=== PATIENT | male | born 1960 | race Caucasian/White ===

== ENCOUNTER 2018-09-02 09:38 | Outpatient (REF) | payer MEDICAID, SELFPAY ==
[2018-09-03 09:51] LABS: HIV-1/2 Ag & Ab Screen Negative (NEGAT)
== END 2018-09-02 09:58 ==
LOC: NCHCN 09:38
PROVIDERS: PCP Family Medicine; Visit Provider Family Medicine
DX: I10 Essential (primary) hypertension (principal); I48.0 Paroxysmal atrial fibrillation; N07.9 Hereditary nephropathy, not elsewhere classified with unspecified morphologic lesions; Z20.6 Contact with and (suspected) exposure to human immunodeficiency virus [HIV]; Z11.4 Encounter for screening for human immunodeficiency virus [HIV]
CPT/HCPCS: 87389; 86701

== ENCOUNTER 2018-12-01 08:45 | Outpatient (REF) | payer MEDICAID, SELFPAY ==
[2018-12-02 10:28] LABS: HIV-1/2 Ag & Ab Screen Negative (NEGAT)
== END 2018-12-01 09:05 ==
LOC: NCHCN 08:45
PROVIDERS: PCP Family Medicine; Visit Provider Family Medicine
DX: B07.9 Viral wart, unspecified; Z20.6 Contact with and (suspected) exposure to human immunodeficiency virus [HIV]; Z11.4 Encounter for screening for human immunodeficiency virus [HIV]; I10 Essential (primary) hypertension
CPT/HCPCS: 87389

== ENCOUNTER 2019-03-02 10:54 | Outpatient (REF) | payer MEDICAID, SELFPAY ==
[2019-03-02 13:22] LABS: ALT 40 U/L (12-78); AST 20 U/L (15-37); Alkaline Phosphatase 130 U/L (46-116); BUN 15 mg/dL (7-18); Bilirubin, Total 0.5 mg/dL (0.2-1.0); CREATININE 1.08 mg/dL (0.70-1.30); Calcium 9.4 mg/dL (8.5-10.1); Chloride 99 mmol/L (98-107); Glucose 93 mg/dL (70-100); Potassium 4.4 mmol/L (3.5-5.1); Sodium 137 mmol/L (136-145); Total Protein 7.4 g/dL (6.4-8.2)
[2019-03-03 10:09] LABS: Syphilis Serology (RPR) Negative (Negative)
[2019-03-03 10:53] LABS: HIV-1/2 Ag & Ab Screen Negative (NEGAT)
[2019-03-03 10:54] LABS: Hepatitis B Surface Ag Negative (NEGAT)
[2019-03-03 13:11] LABS: Chlamydia Result Negative; GC Result Negative; Specimen Description URINE
== END 2019-03-02 11:14 ==
LOC: NCHCN 10:54
PROVIDERS: PCP Family Medicine; Visit Provider Family Medicine
DX: Z11.3 Encounter for screening for infections with a predominantly sexual mode of transmission (principal); Z11.4 Encounter for screening for human immunodeficiency virus [HIV]; Z12.5 Encounter for screening for malignant neoplasm of prostate; Z11.59 Encounter for screening for other viral diseases; Z20.6 Contact with and (suspected) exposure to human immunodeficiency virus [HIV]; Z00.00 Encounter for general adult medical examination without abnormal findings
CPT/HCPCS: 80053; 87340; 87389; 87491; 87591; 84154; 86592

== ENCOUNTER 2019-05-31 09:40 | Outpatient (REF) | payer MEDICAID, SELFPAY ==
[2019-06-01 10:31] LABS: HIV-1/2 Ag & Ab Screen Negative (NEGAT)
[2019-06-01 14:28] LABS: Chlamydia Result Negative; GC Result Negative; Specimen Description URINE
== END 2019-05-31 10:00 ==
LOC: NCHCN 09:40
PROVIDERS: PCP Family Medicine; Visit Provider Family Medicine
DX: Z20.6 Contact with and (suspected) exposure to human immunodeficiency virus [HIV] (principal); Z11.3 Encounter for screening for infections with a predominantly sexual mode of transmission; N28.9 Disorder of kidney and ureter, unspecified
CPT/HCPCS: 87389; 87491; 87591

== ENCOUNTER 2019-08-30 10:54 | Outpatient (REF) | payer OTHER, SELFPAY ==
[2019-08-30 19:02] LABS: Anion Gap 10.1 mmol/L (3-11); BUN 14 mg/dL (7-18); CO2 28.9 mmol/L (21.0-32.0); CREATININE 1.24 mg/dL (0.70-1.30); Calcium 9.3 mg/dL (8.5-10.1); Chloride 101 mmol/L (98-107); Estimated GFR 59.47 (mL/min/1.73m2); Glucose 107 mg/dL (74-106); Sodium 140 mmol/L (136-145)
[2019-09-01 11:37] LABS: HIV-1/2 Ag & Ab Screen Negative (Negative)
== END 2019-08-30 11:14 ==
LOC: NCHCN 10:54
PROVIDERS: PCP Family Medicine; Visit Provider Family Medicine
DX: Z20.6 Contact with and (suspected) exposure to human immunodeficiency virus [HIV] (principal); Z11.4 Encounter for screening for human immunodeficiency virus [HIV]; N28.9 Disorder of kidney and ureter, unspecified
CPT/HCPCS: 80048; 87389

== ENCOUNTER 2019-12-15 17:07 | Outpatient (REF) | payer OTHER, SELFPAY ==
[2019-12-15 21:35] LABS: ALT 38 U/L (16-63); AST 25 U/L (15-37); Albumin 4.1 g/dL (3.4-5.0); Alkaline Phosphatase 99 U/L (46-116); Anion Gap 9.5 mmol/L (3-11); BUN 15 mg/dL (7-18); Bilirubin, Total 0.5 mg/dL (0.2-1.0); CO2 26.5 mmol/L (21.0-32.0); CREATININE 1.25 mg/dL (0.70-1.30); Calcium 9.1 mg/dL (8.5-10.1); Chloride 103 mmol/L (98-107); Estimated GFR 58.72 (mL/min/1.73m2); Glucose 88 mg/dL (74-106); Potassium 4.4 mmol/L (3.5-5.1); Sodium 139 mmol/L (136-145); Total Protein 7.4 g/dL (6.4-8.2)
[2019-12-17 11:32] LABS: HIV-1/2 Ag & Ab Screen Negative (Negative)
[2019-12-17 11:33] LABS: Hepatitis B Surface Ag Negative (Negative)
[2019-12-17 13:43] LABS: Syphilis Serology (RPR) Negative (Negative)
[2019-12-17 16:33] LABS: Chlamydia Result Negative (Negative); GC Result Negative (Negative)
== END 2019-12-15 17:27 ==
LOC: NCHCN 17:07
PROVIDERS: PCP Family Medicine; Visit Provider Family Medicine
DX: F10.11 Alcohol abuse, in remission (principal); N28.9 Disorder of kidney and ureter, unspecified; Z00.00 Encounter for general adult medical examination without abnormal findings; Z20.6 Contact with and (suspected) exposure to human immunodeficiency virus [HIV]; Z11.4 Encounter for screening for human immunodeficiency virus [HIV]; Z11.59 Encounter for screening for other viral diseases; Z11.3 Encounter for screening for infections with a predominantly sexual mode of transmission
CPT/HCPCS: 80053; 87340; 87389; 87491; 87591; 86592

== ENCOUNTER 2020-02-14 14:13 | Outpatient (REF) | payer OTHER, SELFPAY ==
[2020-02-15 21:15] LABS: COVID-19 RT-PCR UVMMC Result Negative (Negative)
== END 2020-02-14 14:33 ==
LOC: NCHCN 14:13
PROVIDERS: PCP Family Medicine; Visit Provider Nurse Practitioner Family
DX: Z11.59 Encounter for screening for other viral diseases (principal)
CPT/HCPCS: U0003

== ENCOUNTER 2020-06-08 16:01 | Outpatient (REF) | payer MEDICAID, SELFPAY ==
[2020-06-08 18:20] LABS: Abs Immature Grans 0.01 10^3/uL (0.0-0.06); Absolute Basophil Count 0.06 10^3/uL (0.0-0.2); Absolute Eosinophil Count 0.09 10^3/uL (0.0-0.7); Absolute Monocyte Count 0.75 10^3/uL (0.1-0.8); Absolute Neutrophil Count 2.18 10^3/uL (1.2-6.7); Basophils % 1.2; Eosinophils % 1.7; HCT 40.6 % (40.0-50.0); HGB 14.2 g/dL (13.5-17.5); Immature Grans % 0.2; Lymphocytes % 40.5; MCH 34.1 pg (27.0-33.0); MCV 97.4 fL (80-95); MPV 12.1 fL (8.0-11.0); Monocytes % 14.5; Neutrophils % 41.9; Nucleated RBC 0 %; Platelet Count 207 10^3/uL (130-400); RBC 4.17 10^6/uL (4.36-5.78); WBC 5.19 10^3/uL (4.4-10.8)
[2020-06-08 18:32] LABS: ALT 64 U/L (16-63); AST 47 U/L (15-37); Albumin 3.8 g/dL (3.4-5.0); Alkaline Phosphatase 57 U/L (46-116); Anion Gap 13.5 mmol/L (3-11); BUN 16 mg/dL (7-18); Bilirubin, Total 0.7 mg/dL (0.2-1.0); CO2 23.5 mmol/L (21.0-32.0); CREATININE 1.99 mg/dL (0.70-1.30); Calcium 8.8 mg/dL (8.5-10.1); Chloride 95 mmol/L (98-107); Estimated GFR 34.33 (mL/min/1.73m2); Glucose 81 mg/dL (74-106); Potassium 3.7 mmol/L (3.5-5.1); Sodium 132 mmol/L (136-145); Total Protein 6.7 g/dL (6.4-8.2)
[2020-06-11 22:27] LABS: Patient Race White; SARS-CoV-2 RNA Undetected (Undetected); SARS-CoV-2 Specimen Source Nasopharynx
[2020-06-12 09:18] LABS: HBs Antibody, Quant >1000.0 mIU/mL (See Note); Hepatitis B Surface Ab Positive (See Note)
[2020-06-12 09:25] LABS: Hepatitis B Surface Ag Negative (Negative)
[2020-06-12 10:09] LABS: HIV-1/2 Ag & Ab Screen Negative (Negative)
[2020-06-12 10:34] LABS: Hepatitis C Ab w Rflx HCV PCR Negative (Negative)
[2020-06-12 11:32] LABS: Syphilis Serology (RPR) Negative (Negative)
[2020-06-12 14:49] LABS: Chlamydia Result Negative (Negative); GC Result Negative (Negative)
== END 2020-06-08 16:21 ==
LOC: NCHCN 16:01
PROVIDERS: PCP Family Medicine; Visit Provider Nurse Practitioner Family
DX: Z11.4 Encounter for screening for human immunodeficiency virus [HIV] (principal); J00 Acute nasopharyngitis [common cold]; F10.99 Alcohol use, unspecified with unspecified alcohol-induced disorder; Z20.6 Contact with and (suspected) exposure to human immunodeficiency virus [HIV]; Z11.59 Encounter for screening for other viral diseases; Z11.3 Encounter for screening for infections with a predominantly sexual mode of transmission
CPT/HCPCS: 80053; 86706; 86803; 87340; 87389; 87491; 87591; U0003; 85025; 86592

== ENCOUNTER 2020-06-27 01:02 | Outpatient (CLI) | payer MEDICAID, SELFPAY ==
--- NOTE | 2020-06-27 | DI.US_ITS ---
EXAM: US RENAL CLINICAL HISTORY: RENAL INSUFFICIENCY,N28.9. TECHNIQUE: Cole scale, color and spectral Doppler were used. COMPARISON: No exams were available for comparison FINDINGS: Renal size in cm: Right: 10.5. Left: 9.2. Echogenicity: Normal. Hydronephrosis: No. Cyst or mass: No. Nephrolithiasis: No. Other findings: Mild left renal cortical atrophy. Bladder:Normal. Ureteral jets: Right: Not visualized during this examination. Left: Visualized and unremarkable. Prevoid vol:46 cc Postvoid vol:0 cc Prostate: Not well visualized on this examination. Renal color flow: Symmetric and within normal limits. IMPRESSION: Mild left renal cortical atrophy. No evidence of nephrolithiasis or hydronephrosis. DATA REPOSITORY:
== END 2020-06-27 01:22 ==
PROVIDERS: PCP Family Medicine; Visit Provider Family Medicine
DX: N26.1 Atrophy of kidney (terminal) (principal)
CPT/HCPCS: 76770

== ENCOUNTER 2020-07-14 17:25 | Emergency (ER) | payer MEDICAID, SELFPAY ==
[2020-07-14 17:29] VITALS: BP 153/84; PULSE 121; RESP 18; O2SAT 94
--- NOTE | 2020-07-14 17:33 | W.ED.GENAD ---
Discharge Plan Disposition Patient Disposition: OTHER Condition: Fair Discharge Details Clinical Impression: Alcohol intoxication Primary Care Provider: Rufus Munoz ED Provider: Brandi Marroquin Home Meds and New Rx's Prescriptions: Continued metoprolol tartrate 25 MG tablet 25 mg PO BID Qty: 60 RF: 0 aspirin 325 MG tablet,delayed release (DR/EC) 325 mg PO DAILY Qty: 30 RF: 0 folic acid 1 MG tablet 1 mg PO DAILY Qty: 15 RF: 0 thiamine mononitrate (vit B1) [Vitamin B-1 (mononitrate)] 100 MG tablet 100 mg PO DAILY Qty: 15 RF: 0 multivitamin [Multiple Vitamins] 1 TAB tablet 1 tab PO DAILY Qty: 30 RF: 0 Discharge Instructions Instructions: Alcohol Intoxication (ED) Additional Instructions: Do not drink alcohol Take medications as directed You are medically cleared for protective custody. Referrals: Rufus Munoz [Primary Care Provider] - Discharge Data Discharge Date/Time-TO BE ENTERED AT DEPARTURE: 07/14/20 18:55 Medical Decision Making impaired and under police custody for protective custody, presents for medical clearance routine labs ordered. Labs and EKG reviewed. There is no evidence of a medical emergency or condition. He is medically cleared for protective custody. Lab Data Lab results reviewed: Yes I reviewed the patient's lab results. Labs: Laboratory Results - last 24 hr 07/14/20 07/14/20 07/14/20 17:56 17:56 17:56 WBC 6.66 RBC 4.04 L Hgb 13.8 Hct 39.6 L MCV 98.0 H MCH 34.2 H MCHC 34.8 RDW 13.8 Plt Count 176 MPV 10.8 Immature Gran % 0.6 Neutrophils % 33.1 Lymphocytes % 57.1 Monocytes % 8.4 Eosinophils % 0.2 Basophils % 0.6 Nucleated RBC % 0 Absolute Neutrophils 2.21 Absolute Lymphocytes 3.80 H Absolute Monocytes 0.56 Absolute Eosinophils 0.01 Absolute Basophils 0.04 PT INR Sodium 142 Potassium 3.6 Chloride 106 Carbon Dioxide 25.3 Anion Gap 10.7 BUN 14 Creatinine 1.12 Estimated GFR/1.73 m2 >= 60.00 Glucose 135 H Calcium 8.0 L Total Bilirubin 0.4 AST 28 ALT 31 Alkaline Phosphatase 69 Total Protein 7.0 Albumin 3.4 TSH 2.16 Urine Color Urine Clarity Urine pH Ur Specific [place] Urine Protein Urine Ketones Urine Blood Urine Nitrite Urine Bilirubin Urine Urobilinogen Ur Leukocyte Esterase Urine RBC Urine WBC Ur Epithelial Cells Urine Crystals Urine Bacteria Urine Casts Urine Mucus Ur Culture Indicated? Urine Glucose Salicylates < 2.8 Urine Opiates Screen Urine Methadone Screen Acetaminophen < 2 Ur Barbiturates Screen Ur Tricyclics Screen Ur Amphetamines Screen U Benzodiazepines Scrn Urine Cocaine Screen Ur THC Screen Ethyl Alcohol 07/14/20 07/14/20 07/14/20 17:56 18:43 18:43 WBC RBC Hgb Hct MCV MCH MCHC RDW Plt Count MPV Immature Gran % Neutrophils % Lymphocytes % Monocytes % Eosinophils % Basophils % Nucleated RBC % Absolute Neutrophils Absolute Lymphocytes Absolute Monocytes Absolute Eosinophils Absolute Basophils PT 9.3 INR 0.9 Sodium Potassium Chloride Carbon Dioxide Anion Gap BUN Creatinine Estimated GFR/1.73 m2 Glucose Calcium Total Bilirubin AST ALT Alkaline Phosphatase Total Protein Albumin TSH Urine Color Yellow Urine Clarity Sl cloudy Urine pH 5.5 Ur Specific [place] >= 1.030 H Urine Protein 100 H Urine Ketones Trace H Urine Blood Small H Urine Nitrite Negative Urine Bilirubin Small H Urine Urobilinogen 0.2 Ur Leukocyte Esterase Negative Urine RBC 0-2 Urine WBC Negative Ur Epithelial Cells Negative Urine Crystals Many calcium oxalate Urine Bacteria Negative Urine Casts 10-20 hyaline Urine Mucus Trace Ur Culture Indicated? No Urine Glucose Negative Salicylates Urine Opiates Screen Negative Urine Methadone Screen Negative Acetaminophen Ur Barbiturates Screen Negative Ur Tricyclics Screen Negative Ur Amphetamines Screen Negative U Benzodiazepines Scrn Negative Urine Cocaine Screen Negative Ur THC Screen Negative Ethyl Alcohol HPI General Date/Time Provider Initiated Documentation: 07/14/20 17:30. Limitations to Documentation: other (Intoxicated). Information obtained by: patient. HPI Narrative: Patient presents to the emergency department with fall enforcement for medical clearance for protective custody. He denies any recent illness or c/o. He reports that he is homeless and is living in a [facility]. He reports that his wellness director is the one that called law enforcement Related Data Home Medications Medication Instructions Recorded Confirmed aspirin 325 mg PO DAILY #30 tablet. 07/11/14 03/12/16 metoprolol tartrate 25 mg PO BID #60 tab 07/11/14 03/12/16 folic acid 1 mg PO DAILY #15 tab 03/13/16 multivitamin [Multiple Vitamins] 1 tab PO DAILY #30 tab 03/13/16 thiamine mononitrate (vit B1) 100 mg PO DAILY #15 tab 03/13/16 [Vitamin B-1 (mononitrate)] Previous Rx's Medication Instructions Recorded aspirin 325 mg PO DAILY #30 tablet. 07/11/14 metoprolol tartrate 25 mg PO BID #60 tab 07/11/14 folic acid 1 mg PO DAILY #15 tab 03/13/16 multivitamin [Multiple Vitamins] 1 tab PO DAILY #30 tab 03/13/16 thiamine mononitrate (vit B1) 100 mg PO DAILY #15 tab 03/13/16 [Vitamin B-1 (mononitrate)] Allergies Allergy/AdvReac Type Severity Reaction Status Date / Time No Known Allergies Allergy Unverified 07/14/20 17:34 General LIZZETTE: 3 Review of Systems All systems reviewed & are unremarkable except as noted in HPI and below Constitutional Constitutional: Denies fever(s) and Denies headache(s) ENT Ears, Nose, Mouth, and Throat: Denies dizziness and Denies headache(s) Cardiovascular Cardiovascular: Denies chest pain, Denies syncope and Denies dyspnea Respiratory Respiratory: Denies dyspnea Gastrointestinal Gastrointestinal: Denies abdominal pain, Denies constipation, Denies diarrhea and Denies vomiting Musculoskeletal Musculoskeletal: Denies back pain Neurologic Neurologic: Denies dizziness, Denies syncope and Denies headache(s) Psychiatric Psychiatric: Denies homicidal ideation and Denies suicidal ideation [facility] Social History Smoking/Tobacco Use Status: Never Alcohol Intake: current Alcohol Intake frequency: 3 or more drinks per day Alcohol type: hard liquor Drug use: Never Substance use type: does not use Do you feel safe at home: Yes Exam Const General: cooperative, no acute distress and intoxicated appearing Nutritional Appearance: obese Orientation: alert, awake and oriented x3 [facility] Head: normal to inspection, normocephalic and atraumatic Resp Effort & Inspection: normal respiratory effort Cardio Rate: tachycardic Rhythm: abnormal rhythm (Controlled to uncontrolled atrial fibrillation) irregularly irregular GI Inspection: normal to inspection Palpation: soft Auscultation: normal bowel sounds Skin General skin exam: no rashes or lesions noted Neuro General: patient alert, patient awake and patient oriented x3 Cranial Nerves: CN's II-XI intact bilaterally Extrem General: normal to inspection, full ROM and no pedal edema
[2020-07-14] MEDS: Normal Saline 1,000 ML 1000 ML IV (17:59)
--- NOTE | 2020-07-14 18:00 | RT.EKG_ITS ---
APPROVED REPORT Exam: Resting ECG Patient Location: E HR:139 bpm ECG Measurements Heart Rate 139 AXIS VA [id number] P [id number] QRSd 69 QRS -85 QT 296 T -1 QTc 451 Conclusion Atrial fibrillation...V-rate 104-174, irreg A-activity Markedly posterior QRS axis...late V-lead transition. Afib. No STEMI. No acute change from previous.
[2020-07-14 18:19] LABS: Abs Immature Grans 0.04 10^3/uL (0.0-0.06); Absolute Basophil Count 0.04 10^3/uL (0.0-0.2); Absolute Eosinophil Count 0.01 10^3/uL (0.0-0.7); Absolute Monocyte Count 0.56 10^3/uL (0.1-0.8); Absolute Neutrophil Count 2.21 10^3/uL (1.2-6.7); Basophils % 0.6; Eosinophils % 0.2; HCT 39.6 % (40.0-50.0); HGB 13.8 g/dL (13.5-17.5); Immature Grans % 0.6; Lymphocytes % 57.1; MCH 34.2 pg (27.0-33.0); MCHC 34.8 % (32.0-36.0); MPV 10.8 fL (8.0-11.0); Monocytes % 8.4; Neutrophils % 33.1; Nucleated RBC 0 %; Platelet Count 176 10^3/uL (130-400); RBC 4.04 10^6/uL (4.36-5.78); RDW 13.8 % (11.8-14.1); RDW-SD 50.4 fL; WBC 6.66 10^3/uL (4.4-10.8)
[2020-07-14 18:32] LABS: INR 0.9 (0.9-1.1); Prothrombin Time 9.3 sec (9.3-11.0)
[2020-07-14 18:42] LABS: ALT 31 U/L (16-63); AST 28 U/L (15-37); Albumin 3.4 g/dL (3.4-5.0); Alkaline Phosphatase 69 U/L (46-116); Anion Gap 10.7 mmol/L (3-11); BUN 14 mg/dL (7-18); Bilirubin, Total 0.4 mg/dL (0.2-1.0); CO2 25.3 mmol/L (21.0-32.0); CREATININE 1.12 mg/dL (0.70-1.30); Chloride 106 mmol/L (98-107); Glucose 135 mg/dL (74-106); Potassium 3.6 mmol/L (3.5-5.1); Sodium 142 mmol/L (136-145); TSH 2.16 uIU/mL (0.36-3.74)
[2020-07-14 18:45] LABS: Salicylate < 2.8 mg/dL (2.8-20.0)
[2020-07-14 18:48] LABS: Acetaminophen < 2 ug/mL (10-30)
[2020-07-14 18:54] LABS: Bilirubin Small (Negative); Blood Small (Negative); Clarity Sl Cloudy (Clear); Glucose Negative (Negative); Ketones Trace mg/dL (Negative); Leukocyte Esterase Negative (Negative); Nitrite Negative (Negative); Specific Gravity >= 1.030 (1.005-1.025); Urobilinogen 0.2 EU/dL (Up TO 0.2); pH 5.5 (5-8)
[2020-07-14 19:02] LABS: *AMPHETAMINES SCREEN URINE Negative (Negative); *BARBITURATES SCREEN URINE Negative (Negative); *BENZODIAZEPINES SCREEN URINE Negative (Negative); Cannabinoids THC Negative (Negative); Cocaine Screen,Urine Negative (Negative); METHADONE URINE SCREEN Negative (Negative); OPIATES URINE SCREEN Negative (Negative)
[2020-07-14 19:05] LABS: Bacteria Negative HPF (Negative); C & S Indicated? No; Casts 10-20 Hyaline LPF (Negative); Crystals Many Calcium Oxalate HPF (Negative); Epithelial Cells Negative HPF (Negative); Mucus Trace (Negative); RBC 0-2 HPF (0-2); Tricyclic Antidepressants Negative (Negative); WBC Negative HPF (0-5)
== END 2020-07-14 18:55 | disposition other institution (70) ==
PROVIDERS: Emergency Provider Nurse Practitioner Acute Care; PCP Family Medicine
DX: F10.120 Alcohol abuse with intoxication, uncomplicated (principal); Y90.8 Blood alcohol level of 240 mg/100 ml or more; Z59.0 Homelessness
CPT/HCPCS: 36415; 80053; 80307; 93005; 96360; 99285; 80320; 80329; 81003; 81015; 84443; 85025; 85610; 93010; 99284

== ENCOUNTER 2020-10-26 12:06 | Outpatient (REF) | payer MEDICAID, SELFPAY ==
[2020-10-27 09:52] LABS: HIV-1/2 Ag & Ab Screen Negative (Negative)
== END 2020-10-26 12:26 ==
LOC: NCHCN 12:06
PROVIDERS: PCP Family Medicine; Visit Provider Family Medicine
DX: Z20.6 Contact with and (suspected) exposure to human immunodeficiency virus [HIV] (principal)
CPT/HCPCS: 87389

== ENCOUNTER 2021-03-30 15:15 | Outpatient (REF) | payer MEDICAID, SELFPAY ==
[2021-03-30 19:28] LABS: Abs Immature Grans 0.01 10^3/uL (0.0-0.06); Absolute Basophil Count 0.06 10^3/uL (0.0-0.2); Absolute Eosinophil Count 0.08 10^3/uL (0.0-0.7); Absolute Lymphocyte Count 3.36 10^3/uL (1.2-3.4); Absolute Monocyte Count 0.82 10^3/uL (0.1-0.8); Absolute Neutrophil Count 3.22 10^3/uL (1.2-6.7); Basophils % 0.8; Eosinophils % 1.1; HCT 37.5 % (40.0-50.0); Immature Grans % 0.1; Lymphocytes % 44.5; MCHC 34.7 % (32.0-36.0); MCV 95.2 fL (80-95); MPV 12.4 fL (8.0-11.0); Monocytes % 10.9; Neutrophils % 42.6; Nucleated RBC 0 %; Platelet Count 136 10^3/uL (130-400); RBC 3.94 10^6/uL (4.36-5.78); RDW 13.7 % (11.8-14.1); RDW-SD 47.8 fL; WBC 7.55 10^3/uL (4.4-10.8)
[2021-03-30 20:10] LABS: ALT 28 U/L (16-63); AST 19 U/L (15-37); Albumin 3.7 g/dL (3.4-5.0); Alkaline Phosphatase 62 U/L (46-116); BUN 9 mg/dL (7-18); Bilirubin, Total 0.7 mg/dL (0.2-1.0); CREATININE 1.2 mg/dL (0.70-1.30); Calcium 9.4 mg/dL (8.5-10.1); Chloride 100 mmol/L (98-107); Glucose 110 mg/dL (74-106); Potassium 3.6 mmol/L (3.5-5.1); Sodium 136 mmol/L (136-145); Total Protein 6.8 g/dL (6.4-8.2); Vitamin B12 604 pg/mL (193-986)
[2021-04-02 09:28] LABS: HIV-1/2 Ag & Ab Screen Negative (Negative)
[2021-04-02 09:46] LABS: Hepatitis B Surface Ag Negative (Negative)
[2021-04-02 12:03] LABS: Syphilis Serology (RPR) Negative (Negative)
== END 2021-03-30 15:16 | disposition home or self-care (01) ==
LOC: NCHCN 15:15
PROVIDERS: PCP Family Medicine; Visit Provider Family Medicine
DX: R74.01 Elevation of levels of liver transaminase levels (principal); N28.9 Disorder of kidney and ureter, unspecified; I10 Essential (primary) hypertension; D64.9 Anemia, unspecified; Z20.6 Contact with and (suspected) exposure to human immunodeficiency virus [HIV]
CPT/HCPCS: 80053; 87340; 87389; 82607; 85025; 86592

== ENCOUNTER 2021-08-15 16:42 | Outpatient (REF) | payer MEDICAID, SELFPAY ==
[2021-08-15 21:30] LABS: HGB 14.2 g/dL (13.5-17.5); MCH 31.2 pg (27.0-33.0); MCV 94.5 fL (80-95); MPV 11.7 fL (8.0-11.0); Platelet Count 245 10^3/uL (130-400); RBC 4.55 10^6/uL (4.36-5.78); RDW 13.3 % (11.8-14.1); RDW-SD 46.8 fL; WBC 8.93 10^3/uL (4.4-10.8)
[2021-08-16 07:43] LABS: Calcium 9.5 mg/dL (8.5-10.1)
[2021-08-16 07:44] LABS: Albumin 4.2 g/dL (3.4-5.0); Alkaline Phosphatase 63 U/L (46-116); BUN 11 mg/dL (7-18); Bilirubin, Total 0.5 mg/dL (0.2-1.0); CREATININE 1.3 mg/dL (0.70-1.30); Chloride 101 mmol/L (98-107); Estimated GFR 55.94 (mL/min/1.73m2); Glucose 92 mg/dL (74-106); Potassium 4.5 mmol/L (3.5-5.1); Sodium 138 mmol/L (136-145); Total Protein 7.1 g/dL (6.4-8.2)
[2021-08-16 07:45] LABS: ALT 23 U/L (16-63); AST 17 U/L (15-37); Anion Gap 8.9 mmol/L (3-11); CO2 28.1 mmol/L (21.0-32.0)
[2021-08-16 08:06] LABS: Iron 87 ug/dL (65-175); Total Iron Binding Capacity 315 ug/dL (250-450); Transferrin Sat 28 % (20-55)
[2021-08-17 10:47] LABS: HIV-1/2 Ag & Ab Screen Negative (Negative)
== END 2021-08-15 16:43 | disposition home or self-care (01) ==
LOC: LBN 16:42
PROVIDERS: PCP Family Medicine; Visit Provider Family Medicine
DX: D64.9 Anemia, unspecified (principal); Z11.4 Encounter for screening for human immunodeficiency virus [HIV]; M79.89 Other specified soft tissue disorders
CPT/HCPCS: 80053; 85027; 87389; 83540; 83550

== ENCOUNTER 2021-10-29 19:05 | Outpatient (REF) | payer MEDICAID, SELFPAY ==
[2021-10-31 09:57] LABS: Hepatitis B Surface Ag Negative (Negative)
[2021-10-31 10:45] LABS: HIV-1/2 Ag & Ab Screen Negative (Negative)
== END 2021-10-29 19:06 | disposition home or self-care (01) ==
LOC: NCHCN 19:05
PROVIDERS: PCP Family Medicine; Visit Provider Family Medicine
DX: Z20.6 Contact with and (suspected) exposure to human immunodeficiency virus [HIV] (principal); Z11.59 Encounter for screening for other viral diseases
CPT/HCPCS: 87340; 87389

== ENCOUNTER 2022-03-01 11:02 | Day surgery (SDC) | payer MEDICAID, SELFPAY ==
--- NOTE | 2022-02-28 11:37 | W.COLOREPORT ---
Colonoscopy Report Date of procedure: 03/01/22 Pre-op diagnosis general: Colorectal cancer screening Post-op diagnosis procedure note: other (diverticula) Surgeon: Lucy Pruitt Anesthesia Type: General:No Airway Estimated blood loss (mL): 0 Pathology: none sent Complications: None Disposition: same day Prep: Miralax/Dulcolax Retraction Time: 9 Procedure Description: After informed consent was obtained the patient was taken to the procedure room and placed in a left decubitous position. Monitors were applied and a time out was done. The patients name, date of , procedure, allergies to medications and metal in their body was reviewed. The patient was then sedated. Once sedated and comfortable a rectal exam was done. External exam was normal. Internal exam revealed a normal sphincter tone and no palpable masses. The scope was then introduced and retrofelexed. No internal hemorrhoids were identified. The scope was then advanced to the cecum w/out difficulty. The TI and appendiceal orifice were identified. The prep was the prep was the BPS 3 in the rectum/sigmoid/left colon and transverse colon it was an BPS 2 in the cecum and right colon for a total of 8. The scope was then slowly retracted over 9 minutes back into the rectum. There are no polyps or AVMs visualized today. He has moderate diverticula confined to the sigmoid colon with no signs of active bleeding or infection. The scope was removed and the patient was woken up and taken back to Same day surgery in stable condition. The patient tolerated the procedure well and there were no immediate complications. Follow up: The patient should follow up in 10 years unless they develop changes in bowel habits or other new gastrointestinal complaints.
--- NOTE | 2022-02-28 11:43 | PDOC.DSDIS_ITS ---
Discharge Plan Disposition Patient Disposition: HOME Condition: Good Discharge Details Reason For Visit: colonscope Attending Provider: Lucy Pruitt Primary Care Provider: Rufus Munoz Home Meds and New Rx's Prescriptions: Continued amlodipine 10 mg tablet 5 mg PO DAILY atorvastatin 10 mg tablet 10 mg PO QPM metoprolol succinate 50 mg tablet extended release 24 hr 50 mg PO DAILY nortriptyline 50 mg capsule 50 mg PO DAILY PRN Label Comments: I hsvrnt taken that in forever [place] 200-25 mg tablet 1 tab PO DAILY aspirin 81 mg tablet,delayed release (DR/EC) 81 mg PO DAILY multivitamin [Multiple Vitamins] 1 TAB tablet 1 tab PO DAILY Qty: 30 0RF Discontinued bisacodyl [Dulcolax (bisacodyl)] 5 mg tablet,delayed release (DR/EC) 5 mg PO ONCE Qty: 4 0RF Rx Instructions: Take according to provider's instructions for colonoscopy prep. No Action polyethylene glycol 3350 17 gram/dose powder 17 g PO ONCE Qty: 238 0RF Rx Instructions: To be taken as directed by prescriber's office for colonoscopy prep. Discharge Instructions Additional Instructions: DSU Colonoscopy Post- Op Instructions Instructions for Everyone who is given Anesthesia: For your safety, please do the following for the next twenty-four (24) hours: *Do Not operate a motor vehicle (car, truck, motorcycle, etc.) *Do Not drink alcoholic beverages or use any recreational drugs for the first 24 hours or while taking pain medications. The medications in your body may have a reaction that can be dangerous. *Do Not make any important decisions or sign any important papers. Findings: -Diverticula. Make sure you are moving your bowels on a regular basis and you are not straining to go to the bathroom. Follow up: -Discussed that there was a small polyp that was removed. My office will send a letter in 2 to 3 weeks time detailing as to what type of polyp it was and when we want you to repeat the colonoscopy, probably 5 to 7 years. 1. No lifting over 20 pounds or strenuous activity for the first 24 hours after your procedure. After 24 hours there are no restrictions on your activity but you may feel fatigued for a few days. 2. After you arrive home you may have a light meal and return to your normal diet as you can tolerate it without feeling sick to your stomach. 3. You may have a bloated, gaseous feeling in your belly (abdomen) after a colonoscopy. Passing gas and belching will help. Walking or lying down on your left side with your knees flexed may relieve the discomfort. Call the office at [phone] (Office) or [phone] (Hospital) right away if you notice any of the following: a.Vomiting of blood or ?coffee ground stools?. b.Rectal bleeding 1% over the last 5-5.5 Certainly mild Tbsp, blood clots or continuous bleeding. c.Severe belly (abdominal) pain. d.A hard distended belly (abdomen) and an inability to pass gas. 4. Please don?t expect to have a normal BM (bowel movement) for 2-3 days after your procedure. 5. If there are questions regarding the findings of your procedure, please contact your doctor 6. If you are unable to contact your doctor with a problem, contact the hospital at [phone]. 7. Continue all your regular medications unless directed otherwise. I understand the above instructions and have no questions. Signature of Patient or Adult Escort Name of Responsible Adult Escort Signature of Nurse Date/Time Stand Alone Forms: Leonarda Maurice (DSU) Activity:: See above Diet:: See above Discharge Orders Discharge Orders: Discharge Order (Routine); Ordered 03/01/22 Ordered By: Lucy Pruitt
[2022-03-01 11:49] VITALS: BP 112/78; PULSE 90; RESP 18; TEMP 36.3; O2SAT 98
--- NOTE | 2022-03-01 12:03 | W.ANESPRE ---
General Info Date of Service Date Performed: 03/01/22 Height: 5 ft 7.5 in Weight: 103.5 kg Body Mass Index (BMI): 35.2 Surgical Procedure: Operation Date: 03/01/22 11:50 Proposed Procedure Side Surgeon roxana Pruitt, DO Meds Allergies and Home Medications Allergies Allergy/AdvReac Type Severity Reaction Status Date / Time No Known Allergies Allergy Unverified 03/01/22 11:36 Home Medication Medication Instructions Recorded multivitamin (Multiple Vitamins 1 tab PO DAILY #30 tabs 03/13/16 tablet) amlodipine 10 mg tablet 5 mg PO DAILY 08/06/21 aspirin 81 mg tablet,delayed 81 mg PO DAILY 08/06/21 release atorvastatin 10 mg tablet 10 mg PO QPM 08/06/21 emtricitabine 200 mg-tenofovir 1 tab PO DAILY 08/06/21 alafenamide fumarate 25 mg tablet (Descovy) metoprolol succinate 50 mg 50 mg PO DAILY 08/06/21 tablet,extended release 24 hr nortriptyline 50 mg capsule 50 mg PO DAILY PRN 08/06/21 polyethylene glycol 3350 17 17 g PO ONCE #238 grams 02/15/22 gram/dose oral powder Current Visit Medications: Current Medications Generic Name Dose Route Start Last Admin Trade Name Freq PRN Reason Stop Dose Admin Ringer's Solution 1,000 mls @ 80 mls/hr 03/01/22 06:00 IV 03/05/22 23:59 INFUSION PAIGE IV Miscellaneous Supplies 1 each 03/01/22 06:00 Iv Access IV 03/05/22 23:59 DIRECTED PAIGE Sodium Chloride 0 ml 03/01/22 06:00 Normal Saline Flush 10 Ml Syr IV 03/05/22 23:59 PRN PRN Sodium Chloride 0 ml 03/01/22 06:00 Normal Saline 10 Ml Vial IJ 03/05/22 23:59 DIRECTED PRN Sterile Water 0 ml 03/01/22 06:00 Water,Injection,Sterile 10 Ml Vial IJ 03/05/22 23:59 DIRECTED PRN [facility] Medical History Medical History Alcohol abuse, in remission Anemia Atrial fibrillation Coxalgia Edema of both ankles Elevated transaminase level HIV exposure Hx of cardiac murmur as a child Hyperlipidemia Hypertension Localized swelling of both lower legs Low back pain Renal insufficiency Tinnitus Medical History Comments:: top front tooth has a chip behind the tooth Surgical History Surgical History (Updated 03/01/22 @ 11:42 by Janelle Schmitt RN) History of appendectomy History of tonsillectomy Hx of LASIK Tobacco Smoking/Tobacco Use Status: Never Alcohol Alcohol Intake: current Alcohol intake frequency: a few times a month Alcohol type: beer and hard liquor Substance Use Substance use type: does not use Vital Signs and Lab Results Vital Signs Most Recent Vital Signs in EMR: Most Recent Vital Signs Temp Pulse Resp BP Pulse Ox 36.3 C L 90 18 112/78 98 03/01/22 11:49 03/01/22 11:49 03/01/22 11:49 03/01/22 11:49 03/01/22 11:49 Lab Results Blood Type / Crossmatch: No Data to Display Complete Blood Count: No Data to Display Complete Metabolic Panel: No Data to Display Liver Function Panel: No Data to Display Coagulation Panel: No Data to Display Cardiac Panel: No Data to Display Arterial Blood Gas: No Data to Display Venous Blood Gas: No Data to Display Pancreas Panel: No Data to Display Thyroid Panel: No Data to Display Infectious Disease: No Data to Display Blood Cultures: No Data to Display Toxicology Panel: No Data to Display Imaging and Studies Imaging and Studies Study information below may be from another EMR and interpreted by another provider. Please see original notes in EMR for more complete details. EKG Summary: DATE/TIME OF SERVICE: 07/14/201818 : 1960PERFORMING LOCATION: ER APPROVED REPORT Exam: Resting ECG Patient Location: E HR:139 bpm ECG Measurements Heart Rate 139 AXIS MA [id number] P [id number] QRSd 69 QRS -85 QT 296 T-1 QTc 451 Conclusion Atrial fibrillation...V-rate 104-174, irreg A-activity Markedly posterior QRS axis...late V-lead transition. Afib. No STEMI. No acute change from previous. Echocardiogram Summary: DATE: July 11, 2014 __X__ IN PATIENT ____ OUT-PATIENT ORDERING PHYSICIAN: HEIGHT: 5 FT 0 IN WEIGHT: 193 LBS BSA: 1.8 m2 STUDY INDICATIONS: Atrial fibrillation. EKG sinus rhythm. FINDINGS: LEFT VENTRICLE/LVEF: Normal size, mild concentric hypertrophy. Normal systolic and diastolic function. Ejection fracture 60 to 65%. Although, no regional wall motion abnormalities were identified, this cannot be entirely excluded based on this study. RIGHT VENTRICLE: Normal size and function. AORTIC VALVE: Trileaflet, mild regurgitation. No stenosis. MITRAL VALVE: Structurally normal. No regurgitation or stenosis. TRICUSPID VALVE: Structurally normal valve. No stenosis. Trivial regurgitation. RSV/PA/RIGHT ATRIAL PRESSURE: PA pressures not obtained. PULMONIC VALVE: Grossly normal. No stenosis or regurgitation. ATRIA: Within normal limits. DIASTOLIC INDICES: Diastolic function normal for age. GREAT VESSELS: Aorta normal size. IVC not visualized. PERICARDIUM: No effusion. SUMMARY: Left ventricular normal size. Mild LVH. Normal systolic and diastolic function. EF 60 to 65%. No significant valvular dysfunction. Anesthesia Assessment and Plan Anesthesia History Personal History: No History of Anesthesia Complications Family History: No Family History of Anesthesia Complications Exercise Tolerance Exercise Tolerance: Metabolic Equivalents>4 Pertinent Negatives Pertinent Negatives: No Symptoms of GERD Cardiac & Pulmonary Exam Cardiac Exam: Normal S1/S2 Heart Sounds Pulmonary Exam: Clear Bilateral Breath Sounds Implantable Cardiac Device Does patient have a Pacemaker or an ICD?: No Airway Exam Known Difficult Airway: No Mallampati Class: 3 Mouth Opening: Narrow (< 3cm) Thyromental Distance: Greater than 3 cm Neck Range of Motion: Full ROM Neck Circumference: Normal Teeth Condition: Normal Dentition ASA Classification ASA Score: ASA 3 Emergency Case?: No NPO Status NPO Status: NPO Clears >2 hours, Solids >8 hours Anesthesia Plan Resuscitation Status: Full Code Anesthesia Technique: General Anesthesia Airway Planned: Natural Airway Monitors Used: Standard Monitors
[2022-03-01] MEDS: Lactated Ringers 1,000 ML 80 ML IV (12:20)
[2022-03-01 12:25] VITALS: BMI 35.2
[2022-03-01 13:11] VITALS: BP 98/69; PULSE 81; RESP 22; TEMP 36.4; O2SAT 95
[2022-03-01 13:48] VITALS: BP 111/80; PULSE 78; RESP 16; TEMP 36; O2SAT 99
--- NOTE | 2022-03-01 14:56 | W.ANESPOSTOP ---
Postoperative Evaluation Date, Time and Location Date Performed: 03/01/22 Time Performed: 14:57 Patient Location: Day Surgery Unit Vital Signs Most Recent Imported Vital Signs: Most Recent Vital Signs Temp Pulse Resp BP Pulse Ox 36.0 C L 78 16 111/80 99 03/01/22 13:48 03/01/22 13:48 03/01/22 13:48 03/01/22 13:48 03/01/22 13:48 Pain Score Most Recent Pain Score: Most Recent Pain Score Pain Level 0 03/01/22 13:48 Assessment Mental Status: Awake (Alert & Oriented to Patient Baseline) Airway and Respiratory Function: Patent airway with normal (patient baseline) respiratory exam Cardiovascular Function: Hemodynamically Stable Hydration Status: Adequately Hydrated Nausea & Vomiting: No Nausea or Vomiting Pain: Pt. Denies Any Pain Peripheral Nerve Block: Patient did not receive a nerve block
== END 2022-03-01 14:36 | disposition home or self-care (01) ==
PROVIDERS: PCP Family Medicine; Visit Provider Surgery
PROC: 0DJD8ZZ Inspection of Lower Intestinal Tract, Via Natural or Artificial Opening Endoscopic (ICD-10-PCS; CPT 45378; principal; 2022-03-01 11:45)
DX: Z12.11 Encounter for screening for malignant neoplasm of colon (principal); K57.30 Diverticulosis of large intestine without perforation or abscess without bleeding; D64.9 Anemia, unspecified; I10 Essential (primary) hypertension; I48.91 Unspecified atrial fibrillation
CPT/HCPCS: 45378

== ENCOUNTER 2022-05-20 14:57 | Outpatient (REF) | payer MEDICAID, SELFPAY ==
[2022-05-21 09:20] LABS: Hepatitis B Surface Ag Negative (Negative)
[2022-05-21 09:56] LABS: HIV-1/2 Ag & Ab Screen Negative (Negative)
== END 2022-05-20 14:58 | disposition home or self-care (01) ==
LOC: NCHCN 14:57
PROVIDERS: PCP Family Medicine; Visit Provider Family Medicine
DX: F10.11 Alcohol abuse, in remission (principal); N28.89 Other specified disorders of kidney and ureter; Z20.6 Contact with and (suspected) exposure to human immunodeficiency virus [HIV]; Z11.59 Encounter for screening for other viral diseases
CPT/HCPCS: 87340; 87389